=== PATIENT | male | born 1975 | race African-American/Black ===

== ENCOUNTER 2019-07-31 10:26 | Emergency (ER) | payer MEDICAID ==
[~2019-07-31] VITALS: Ht 190.5 cm; Wt 111.4 kg
[2019-07-31] MEDS ORDERED: ketorolac trometh inj. 60 MG/2 ML VIAL IM ONE (11:05)
--- NOTE | 2019-07-31 12:14 | NUR ---
RELIEVING RN FOR BREAK, PT IS RESTING QUIETLY, EASILY AROUSEABLE, C/O LEFT HIP PAIN, 11/25, WAITING FOR RESULTS OF CT
[2019-07-31 13:14] VITALS: BP 133/86
== END 2019-07-31 13:16 | disposition home or self-care (01) ==
LOC: ER 10:27
DX: S70.02XA Contusion of left hip, initial encounter (principal); M25.552 Pain in left hip; F12.90 Cannabis use, unspecified, uncomplicated; F15.90 Other stimulant use, unspecified, uncomplicated; Z59.0 Homelessness; W18.39XA Other fall on same level, initial encounter; Y93.89 Activity, other specified; Y92.89 Other specified places as the place of occurrence of the external cause; Y99.8 Other external cause status
CPT/HCPCS: 72192; 73502; 96372; 99284; J1885; 99283